=== PATIENT | female | born 1965 | race Caucasian/White ===

== ENCOUNTER 2018-09-01 16:45 | Emergency (ER) | payer SELFPAY ==
[~2018-09-01] VITALS: Ht 165.1 cm; Wt 81.8 kg
[2018-09-01] MEDS ORDERED: IBUP-2354 PO (16:55)
[2018-09-01] MEDS ORDERED: ALBUTEROL SULFATE 5 MG/ML 20 ML NEB SOLN [BULK] NEB ONE (17:00)
[2018-09-01] MEDS ORDERED: IPRATROPIUM BROMIDE 0.5 MG/2.5 ML NEB SOLUTION NEB ONE (17:00)
[2018-09-01 18:13] VITALS: BP 142/60
[2018-09-01] MEDS ORDERED: ALBUTEROL SULFATE HFA 90 MCG/PUFF 8 GM INHALER IH ONE (18:15)
== END 2018-09-01 19:40 | disposition home or self-care (01) ==
LOC: EMS 16:46
DX: J45.901 Unspecified asthma with (acute) exacerbation (principal); F17.210 Nicotine dependence, cigarettes, uncomplicated; F12.90 Cannabis use, unspecified, uncomplicated
CPT/HCPCS: 94644; J3535

== ENCOUNTER 2019-01-29 18:54 | Emergency (ER) | payer SELFPAY ==
[~2019-01-29] VITALS: Ht 162.6 cm; Wt 84.1 kg
[~2019-01-29 18:54] MED LIST: IBUP-2354 PO
[2019-01-29] MEDS ORDERED: ALBU8HFA IH (19:21)
[2019-01-29] MEDS ORDERED: ALBUTEROL SULFATE 2.5 MG/0.5 ML NEB SOLUTION NEB ONE (19:30)
[2019-01-29] MEDS ORDERED: IPRATROPIUM BROMIDE 0.5 MG/2.5 ML NEB SOLUTION NEB ONE (19:30)
[2019-01-29 19:43] VITALS: BP 120/85
[2019-01-29] MEDS ORDERED: PredniSONE 20 MG TABLET PO ONE (19:45)
[2019-01-29] MEDS ORDERED: ALBUTEROL SULFATE HFA 90 MCG/PUFF 8 GM INHALER IH ONE (20:45)
== END 2019-01-29 20:41 | disposition home or self-care (01) ==
LOC: EMS 18:55
DX: J45.909 Unspecified asthma, uncomplicated (principal)
CPT/HCPCS: 94640; 99284; J7512; 94060; J3535

== ENCOUNTER 2019-03-09 21:11 | Emergency (ER) | payer SELFPAY ==
[~2019-03-09] VITALS: Ht 162.6 cm; Wt 84.1 kg
[~2019-03-09 21:11] MED LIST changes: +ALBU8HFA IH; -IBUP-2354 PO
[2019-03-09] MEDS ORDERED: 0.9% SODIUM CHLORIDE 5 ML NEB SOLUTION NEB ONE (21:27)
[2019-03-09] MEDS: IPRATROPIUM BROMIDE 0.5 MG/2.5 ML NEB SOLUTION NEB ONE (21:32)
[2019-03-09] MEDS: ALBUTEROL SULFATE 5 MG/ML 20 ML NEB SOLN [BULK] NEB ONE (21:32)
[2019-03-09 21:39] VITALS: BP 114/78
[2019-03-09] MEDS: PredniSONE 20 MG TABLET PO ONE (21:48)
== END 2019-03-09 22:11 | disposition home or self-care (01) ==
LOC: EMS 21:12
DX: J45.909 Unspecified asthma, uncomplicated (principal)
CPT/HCPCS: 94644; 99285; J7512

== ENCOUNTER 2019-07-05 21:52 | Emergency (ER) | payer SELFPAY ==
[~2019-07-05] VITALS: Ht 165.1 cm; Wt 84.1 kg
[2019-07-05] MEDS ORDERED: LEVALBUTEROL HCL 0.63 MG/3 ML NEB SOLUTION NEB ONE (22:00)
[2019-07-05] MEDS ORDERED: IPRATROPIUM BROMIDE 0.5 MG/2.5 ML NEB SOLUTION NEB ONE ×2 (22:00)
[2019-07-05] MEDS ORDERED: ALBUTEROL SULFATE 2.5 MG/0.5 ML NEB SOLUTION NEB ONE (22:00)
[2019-07-05] MEDS ORDERED: ALBUTEROL SULFATE HFA 90 MCG/PUFF 8 GM INHALER IH ONE (23:30)
[2019-07-05] MEDS ORDERED: PredniSONE 20 MG TABLET PO ONE (23:30)
[2019-07-05 23:42] VITALS: BP 122/65
== END 2019-07-05 23:51 | disposition home or self-care (01) ==
LOC: EMS 21:54
DX: J45.909 Unspecified asthma, uncomplicated (principal); F17.210 Nicotine dependence, cigarettes, uncomplicated
CPT/HCPCS: 94640; 99285; J7512; J3535

== ENCOUNTER 2019-07-22 16:32 | Emergency (ER) | payer MEDICAID ==
[~2019-07-22] VITALS: Ht 167.6 cm; Wt 81.8 kg
[2019-07-22] MEDS ORDERED: 0.9% SODIUM CHLORIDE 5 ML NEB SOLUTION NEB ONE ×2 (16:44→17:38)
[2019-07-22] MEDS ORDERED: ALBUTEROL SULFATE 2.5 MG/0.5 ML NEB SOLUTION NEB ONE ×2 (16:45→17:15)
[2019-07-22] MEDS ORDERED: IPRATROPIUM BROMIDE 0.5 MG/2.5 ML NEB SOLUTION NEB ONE (16:45)
[2019-07-22] MEDS ORDERED: PredniSONE 20 MG TABLET PO ONE (17:15)
[2019-07-22] MEDS ORDERED: ALBUTEROL SULFATE HFA 90 MCG/PUFF 8 GM INHALER IH ONE (17:15)
[2019-07-22 18:05] VITALS: BP 138/84
== END 2019-07-22 18:40 | disposition home or self-care (01) ==
LOC: EMS 16:32
DX: J45.901 Unspecified asthma with (acute) exacerbation (principal); Z87.891 Personal history of nicotine dependence; Z79.899 Other long term (current) drug therapy; Z98.890 Other specified postprocedural states
CPT/HCPCS: 71046; 94640; 99285; J7512; J3535

== ENCOUNTER 2019-10-03 15:35 | Emergency (ER) | payer MEDICAID ==
[~2019-10-03] VITALS: Ht 167.6 cm; Wt 81.8 kg
[2019-10-03 15:37] VITALS: BP 120/90
[2019-10-03] MEDS ORDERED: ALBUTEROL SULFATE 2.5 MG/0.5 ML NEB SOLUTION NEB ONE (15:45)
[2019-10-03] MEDS ORDERED: IPRATROPIUM BROMIDE 0.5 MG/2.5 ML NEB SOLUTION NEB ONE (15:45)
== END 2019-10-03 17:32 | disposition left against medical advice (07) ==
LOC: EMS 15:35
DX: J45.909 Unspecified asthma, uncomplicated (principal); Z53.21 Procedure and treatment not carried out due to patient leaving prior to being seen by health care provider
CPT/HCPCS: 94640